=== PATIENT | female | born 1975 | race Caucasian/White ===

== ENCOUNTER → 2022-11-10 | Outpatient (CLI) | payer SELFPAY ==
--- NOTE | 2022-11-10 | EMB_PTH ---
PATIENT: JENNI PARTIDA LOC: [facility]#:[id number] AGE/SX: 47/F ROOM: RE11/10/[address]: Dr. Tara Cagle DO : 1975 BED: DIS: 11/10/2022 SPEC #: [id number] RECD: 11/10/22 16:06 STATUS: CARLOS RICE #: [id number] NEDA: 11/10/22 00:[address]: Tara Cagle DEPT: SURGICAL PATHOLOGY RECD BY: Nathen Lu ENTERED: 11/11/22 07:56 SP TYPE: ENDOM BX/C CARRIE DR: Dr. Kayley Ritter MD Tissues: Endometrium, NOS Procedures: Surgery Specimen Level IV HEADER OPERATION: Endometrial biopsy PRE-OP DIAGNOSIS: Abnormal uterine bleeding TISSUE SUBMITTED: Endometrial lining MICROSCOPIC DIAGNOSIS Endometrial biopsy: Late proliferative/early secretory endometrium. Fragments of benign ecto- and endocervical mucosa with chronic inflammation. SJ:ellis 11/14/2022 MICROSCOPIC DESCRIPTION Slides are reviewed. GROSS DESCRIPTION Received is one container labeled with the patient's name and not further designated. The specimen consists of multiple fragments of hemorrhagic soft tissue that in aggregate measure 1.0 x 0.5 x 0.1 cm. The specimen is totally submitted in one cassette. / LUDA:ellis 11/11/2022 TC:3 CPT: 41530
[2022-11-18 19:44] LABS: HPV APTIMA, High Risk Negative (Negative)
== END | disposition home or self-care (01) ==
PROVIDERS: PCP Family Medicine; Referring Provider Obstetrics & Gynecology; Visit Provider Obstetrics & Gynecology
DX: Z12.4 Encounter for screening for malignant neoplasm of cervix (principal); N93.9 Abnormal uterine and vaginal bleeding, unspecified
CPT/HCPCS: 87624; 88175; 88305; G0145